=== PATIENT | male | born 1945 | race Caucasian/White ===

== ENCOUNTER 2016-08-23 14:00 | Inpatient (IN) | payer OTHER, SELFPAY ==
--- NOTE | ~2016-08-23 | DS ---
Discharge Summary [facility] [address] [place]. [address] NAME: MERLIN JIMÉNEZ : 43 STATUS : DIS IN PAT#: [id number] AGE: 71 ADM/REG DATE : 08/23/16 MR#: [id number] REPORT SERV DATE: 08/27/16 DICTATED BY: MARCUS FIGUEROA DATE: 08/26/16 REPORT STATUS : Draft TRANSCRIBED BY: CARLY DATE: 08/26/16 ADMISSION DATE: 08/23/2016 DISCHARGE DATE: 08/26/2016 CONSULTATIONS: Ophthalmology, Dr. Kirill Thrasher. PROCEDURES: None. DISCHARGE DIAGNOSES: 1. Left eye herpes zoster ophthalmicus. 2. Acute kidney injury on chronic kidney disease. 3. Diabetes mellitus type 2. 4. Hypertension. 5. Dyslipidemia. 6. Obesity. 7. History of supraventricular tachycardia status post automatic implantable cardioverter- defibrillator placement. 8. History of coronary artery disease status post percutaneous coronary intervention placement. 9. Pseudohyponatremia. DISCHARGE CONDITION: Stable. HISTORY OF PRESENT ILLNESS: In brief, this is a 71-year-old male with medical history significant for coronary artery disease status post PCI in 2010, diabetes mellitus with a hemoglobin A1c of 14.2, chronic kidney disease, history of SVT status post AICD placement, who presented to the hospital with complaints of left-sided facial pain and rash of a week duration. The patient reported that he developed sudden worsening left-sided facial pain. Two days later, after the onset of a sharp pain developed a vesicular rash that became across that, and he noticed progressive worsening facial swelling of left eye swelling and decided to come to the hospital for further evaluation. In the ER, vital signs: Blood pressure was 129/57, pulse rate was 83 beats per minute, temperature was 97.6. Physical exam was noted for a vesicular/crusted rash extending from the forehead, left temporal region extending to the left eyebrow and left lower eyelid. There was associated hyperemia and yellowish discharge. Vision in both eyes were intact. LABORATORY DATA: Significant for sodium of 129, glucose of 386, creatinine of 4.11. Hematology: WBC was 9.4, hemoglobin was 12.8, and platelets were 108. ASSESSMENT: Left eye herpes zoster ophthalmicus, acute kidney injury on chronic kidney disease as well as diabetes type 2 with hyperglycemia was made in the ER, and the patient was admitted to the Hospitalist Service. HOSPITAL COURSE: 1. Left eye herpes zoster ophthalmicus. Based on the patient's clinical presentation of Discharge Summary [address] [place]. [address] NAME: MERLIN JIMÉNEZ : 43 STATUS : DIS IN PAT#: [id number] AGE: 71 ADM/REG DATE : 08/23/16 MR#: [id number] REPORT SERV DATE: 08/27/16 DICTATED BY: MARCUS FIGUEROA DATE: 08/26/16 REPORT STATUS : Draft TRANSCRIBED BY: MODL DATE: 08/26/16 crusted vesicular lesion in the V1 trigeminal distribution affecting the left eye, an assessment and a diagnosis of herpes zoster ophthalmicus was made on presentation. Ophthalmology was consulted. We recommended to continue oral acyclovir as well as erythromycin ointment. Twenty-four hours after admission the patient developed significant left upper and lower eyelid edema. A CT scan of the face was done that shows upper and left lower eyelid edema without evidence of cellulitis. The patient was continued on oral acyclovir and erythromycin with significant improvement. Dr. Thrasher, Ophthalmology, was also consulted, who came and did an eye examination. Based on the Ophthalmology eye exam, vision was intact, but noted was some diabetes retinopathy. The patient was advised to continue oral acyclovir and erythromycin ointment, and follow up with Ophthalmology within one week of discharge. 2. Acute kidney injury on chronic kidney disease, stage 3. The patient's creatinine on presentation was 4.1, last known creatinine baseline was 1.3. The patient was started on IV fluid resuscitation. The patient's creatinine trended down from 4.1 to 0.9 at the time of discharge. The renal ultrasound that shows a 0.2 cm stone in the mid collecting system of the left kidney without any evidence of obstruction. The patient was advised to continue liberal fluid intake and to follow up with Nephrology as an outpatient. 3. Diabetes mellitus. The patient had an HbA1c that shows HGB A1c of 14.2, the patient was started on subcu insulin. The patient's blood sugar trended down from the 400 to 200. At the time of discharge, the patient's blood sugar was in the 100s. The patient had diabetes education prior to discharge. Based on financial reason it was decided that the patient should go home on Novolin 70/30, 30 units in the a.m. and 30 units at p.m. The patient reports that he will be able to pay the co-payment for Novolin 70/30 as opposed to going home on Lantus insulin as well as NovoLog. This decision was made in agreement with the patient, diabetes educators, and myself. The patient was advised to follow up with primary care physician. Also home health was set up for the patient to help the patient monitor blood sugar at home. 4. Pseudohyponatremia. On presentation, the patient's serum sodium was 128, blood sugar was in the 400. Corrected sodium for glucose was 135. The patient was started on IV fluids as well as subcu insulin. The patient's glucose trended down. The patient's sodium increased back to baseline prior to discharge. DISCHARGE MEDICATIONS: 1. Novolin 70/30, 30 units in the a.m. and 30 units in the p.m. with meals. 2. Acyclovir 600 mg p.o. every 6 hours. 3. Allopurinol 300 mg p.o. daily. 4. Aspirin 81 mg p.o. daily. 5. Coreg 12.5 mg p.o. b.i.d. 6. Cranberry extract 420 mg p.o. daily. 7. Cyanocobalamin 100 mg p.o. daily. 8. Benadryl 25 mg p.o. daily. 9. Doxazosin 4 mg tablet p.o. daily. 10.Erythromycin ointment to apply every 4 hours. 11.Folic acid. 12.Lasix 40 mg p.o. b.i.d. 13.Hydrocodone 7.5/3.25 p.o. every 6 hours p.r.n. Discharge Summary [address] [address] NAME: MERLIN JIMÉNEZ : 43 STATUS : DIS IN PAT#: [id number] AGE: 71 ADM/REG DATE : 08/23/16 MR#: [id number] REPORT SERV DATE: 08/27/16 DICTATED BY: MARCUS FIGUEROA DATE: 08/26/16 REPORT STATUS : Draft TRANSCRIBED BY: CARLY DATE: 08/26/16 14.Imdur 30 mg p.o. daily. 15.Lisinopril 25 mg p.o. daily. 16.Simvastatin [address] daily. IM[address]IN. CT brain without contrast. Impression: Stable atrophy. No acute pathology is seen. No evidence of an intracranial bleed. 2. CT of the face without contrast. Impression: Nonspecific periorbital edema consistent with the cellulitis or trauma. No intracranial extension of the process is identified. 3. Renal ultrasound. Impression: Kidneys are not obstructed. There was a stone in the left kidney not causing obstruction. The aorta and vena cava are normal. Urinary bladder normal. DISCHARGE DISPOSITION: The patient to be discharged home. Home health has been ordered. FOLLOWUP PLANS: Follow up with primary care physician within one to two weeks of discharge. Follow up with Ophthalmology within one week of discharge. DISCHARGE ACTIVITY: As tolerated. DISCHARGE DIET: 1800 calorie diet. A total of 40 minutes were used to prepare this patient's discharge, reconcile medication, and advised the patient on discharge plans and followup. IOO/MODL Marcus Figueroa MD / [id number] CC: Marcus Figueroa MD
--- NOTE | ~2016-08-23 | HP ---
History And Physical [facility] [address] [place]. [address] NAME: MERLIN JIMÉNEZ : 43 STATUS : ADM IN [facility]#: [id number] AGE: 71 ADM/REG DATE : 08/23/16 MR#: [id number] REPORT SERV DATE: 08/23/16 DICTATED BY: MARCUS FIGUEROA DATE: 08/23/16 REPORT STATUS : Draft TRANSCRIBED BY: CARLY DATE: 08/23/16 DATE OF ADMISSION: 08/23/2016 CHIEF COMPLAINT: Right facial pain and rash. HISTORY OF PRESENT ILLNESS: This is a 71-year-old male with medical history significant for coronary artery disease status post history of PCI (2010), diabetes mellitus on insulin therapy, chronic kidney disease stage III, history of SVT status post AICD placement who presented to the hospital with complaints of left-sided facial pain and rash of one week duration. The patient reported that he was in his usual state of health until about a week ago when he noticed a gradual worsening sharp pain around his right eye radiating all the way to the right forehead and right temporal region. He described the pain as 10/10 in severity. No known aggravating or relieving factors. He reported that he took Tylenol and hydrocodone for pain without any significant relief. Three days ago, he noticed a vesicular rash that gradually developed around the eye, later became crusted. He denies any history of contact with any patient with diagnosis of shingles. The patient denied taking any zoster vaccine. The patient also cannot remember if he had chicken pox during childhood. The patient denied any history of fever or skin rash in any other part of his body. He has never had any previous similar episodes. The patient reported associated poor appetite and nausea. He reports that in the last three days because of excessive nausea and generalized feeling of unwell, he has not been able to eat or drink. He has had reduced p.o. intake. He denies any vomiting, diarrhea, or abdominal pain. The patient denies taking any NSAIDs or anti-inflammatory vnjn-enl-povdlsu medication. He also denies any reduced urinary output, urgency, frequency, or flank pain. He denies any shortness of breath, chest pain, palpitation, leg swelling, orthopnea, or PND. PAST MEDICAL HISTORY: 1. History of coronary artery disease status post PCI. 2. Diabetes mellitus type 2. 3. Hypertension. 4. Dyslipidemia. 5. Chronic kidney disease stage 3. 6. History of SVT status post AICD. ALLERGIES: NO KNOWN DRUG ALLERGIES. PAST SURGICAL HISTORY: History of cholecystectomy and also history of left clavicular surgery. FAMILY HISTORY: Reports significant history of breast cancer in the mother. Father is unknown. SOCIAL HISTORY: The patient reports that he quit drinking alcohol about 13 years ago. Denies smoking cigarettes, using illicit drugs. Also denies any cocaine use. REVIEW OF SYSTEMS: History And Physical [address] [address] NAME: MERLIN JIMÉNEZ : 43 STATUS : ADM IN [facility]#: [id number] AGE: 71 ADM/REG DATE : 08/23/16 MR#: [id number] REPORT SERV DATE: 08/23/16 DICTATED BY: MARCUS FIGUEROA DATE: 08/23/16 REPORT STATUS : Draft TRANSCRIBED BY: CARLY DATE: 08/23/16 A 12-point review of systems performed; positive findings as per HPI. Other systems essentially negative. PHYSICAL EXAMINATION: VITAL SIGNS: Blood pressure 129/57, pulse rate 83 beats per minute, temperature 97.6, saturating 100% on room air. GENERAL: Not in any acute distress. Able to speak in full sentences. HEENT: Vesicular/crusted rash extending along the forehead and the upper eyebrow extending to the left temporal region. Left eye hyperemic with tiny yellowish discharge. Visual field intact. Oral mucosa moist. NECK: Supple. No cervical lymphadenopathy. CHEST: Nontender, bilaterally symmetrical. HEART: Regular rate and rhythm. S1-S2. No murmurs. LUNGS: Clear to auscultation bilaterally. No wheezing. No rhonchi. No crackles. ABDOMEN: Bowel sounds normoactive. Nontender, no palpably enlarged organomegaly. EXTREMITIES: No pedal edema. NEURO: Alert and oriented x3. Cranial nerves 2 through 12 intact. Strength 5/5 in all extremities. Reflexes normal. LABORATORY DATA: Chemistry: Sodium 129, chloride 90, potassium 4.0, bicarb 26, creatinine 4.11, BUN 82, glucose 386. Hematology: WBC 9.4, hemoglobin 12.8, hematocrit 37.4, platelets 108, ALT 42, AST 68, alkaline phosphatase 94. Lipase 146. IMPRESSION: In summary, this is a 71-year-old, male with medical history of coronary artery disease status post PCI, diabetes mellitus type 2, hypertension, chronic kidney disease stage 3 who presented to the hospital with complaints of left facial pain of one week duration and left facial rash of three day's duration who was found to have herpes zoster ophthalmicus and acute kidney injury on chronic kidney disease stage 3. Hospitalist Service contacted to admit the patient for further management. ASSESSMENT AND PLAN: 1. Herpes zoster ophthalmicus. The patient presented with crusted vesicular rash along the V1 trigeminal distribution typical for herpes zoster affecting the left eye. At the time of my evaluation, the patient's vision in the left eye and right eye are intact. No visual loss, no visual field deficit. Emergency jmsd-del-zejes consult was placed to the ophthalmology on-call case. Case was reviewed with him, and he recommended to start the patient on oral acyclovir as well as ophthalmic erythromycin to prevent superimposed bacterial infection. We will also add amitriptyline to patient's medication if the pain continues to persist. Per home health care worker, no role for topical steroids at this time as this may make patient's presentation even worse. Plan: We will continue oral acyclovir as well as topical erythromycin. 2. Acute kidney injury on chronic kidney disease. Per patient report, the patient reports that he has chronic kidney disease. He follows up with Nephrology, Dr. Benites as an outpatient. The patient's last known creatinine based on [employer] report is 1.3. Based on this presentation, this is consistent with acute kidney injury on chronic History And Physical [address] [address] NAME: MERLIN JIMÉNEZ : 43 STATUS : ADM IN PAT#: [id number] AGE: 71 ADM/REG DATE : 08/23/16 MR#: [id number] REPORT SERV DATE: 08/23/16 DICTATED BY: MARCUS FIGUEROA DATE: 08/23/16 REPORT STATUS : Draft TRANSCRIBED BY: MODL DATE: 08/23/16 kidney disease. Definitive etiology is unclear but maybe related to reduced p.o. intake as well as possible progression of chronic kidney disease secondary to diabetes nephropathy. I will place a Gaines catheter to rule out obstructive uropathy. I will start the patient on IV fluids, rehydration at this time. I will also obtain urine chemistry, even eosinophils, and bilateral retroperitoneal renal ultrasound to further elucidate the patient's etiology of acute kidney injury on chronic kidney disease. 3. Hypoosmolar hyponatremia which is due to significant osmolality, significant elevated blood sugar of 386. The patient's true serum sodium corrected for glucose is 134. This is in keeping with pseudohyponatremia. 4. Diabetes mellitus with hyperglycemia on long-term insulin use. HBA1c unknown at this time. We will recommend the patient on subcu insulin and continue the patient on normal saline for fluid hydration. No evidence for DKA as patient's anion gap is normal, and bicarb is also within normal range. 5. Hypertension. I will hold the patient's lisinopril as this may be contributing to the patient's acute kidney injury. I will also hold the patient's Lasix at this time and continue the patient on home dose antihypertensives. 6. Coronary artery disease status post PCI. No evidence of chest pain at this time. The EKG shows no evidence of ST-segment changes. We will continue patient's beta elbert, aspirin, and continue to monitor. 7. Deep vein thrombosis prophylaxis. Heparin subcu. 8. Code status. Full code. The patient will be admitted to the cardiac telemetry service under the care of Dr. Marcus Figueroa. IOO/MODL Marcus Figueroa MD / [id number] CC: Marcus Figueroa MD
--- NOTE | ~2016-08-23 | CN ---
Consultation Report [facility] [address] [place]. [address] NAME: MERLIN JIMÉNEZ : 43 STATUS : DIS IN PAT#: [id number] AGE: 71 ADM/REG DATE : 08/23/16 MR#: [id number] REPORT SERV DATE: 08/28/16 DICTATED BY: KIRILL MENA JR. DATE: 08/28/16 REPORT STATUS : Draft TRANSCRIBED BY: MODL DATE: 08/28/16 OPHTHALMOLOGY CONSULT NOTE DATE OF CONSULTATION: 08/26/2016 TIME OF CONSULT: 08:15 a.m. HISTORY OF PRESENT ILLNESS: The patient is a 71-year-old white male with a 4-day history of left scalp and eye swelling, admitted for shingles. The patient reports vision in the left eye was blurry initially, but now back to normal. PAST MEDICAL HISTORY: Type 2 diabetes, hypertension, history of bypass and stents, defibrillator, and pacemaker, and a history of kidney disease due to diabetes. PAST EYE HISTORY: Negative. FAMILY MEDICAL HISTORY: Negative. FAMILY OCULAR HISTORY: Negative. MEDICINES: See med sheet. ALLERGIES: NO KNOWN DRUG ALLERGIES. SOCIAL HISTORY: Negative for alcohol and tobacco. REVIEW OF SYSTEMS: Elevated blood sugar this admission with significantly elevated hemoglobin A1c. Blood sugars in the 300-400 range. PHYSICAL EXAMINATION: GENERAL: Well developed obese white male, in no acute distress. Alert x3. HEENT: Vision near without correction 20/100 in the right eye, 20/400 in the left. External examination is normal. On the right, there is edema of the left upper lids, no lesions. There is scaled eschar lesions on the left scalp, no bullous lesions noted. Motility is esotropic and full. Pupils 4 mm to 3 mm constricting bilaterally. There is no afferent pupillary defect noted. Confrontation visual saba are full to finger count in both eyes. Anterior segment examination reveals lids and lashes as external. Conjunctiva and sclera clear on the right, 1+ injection on the left. Cornea is clear in both eyes. Anterior chamber deep both eyes. Iris flat both eyes. Lens 3+ nuclear sclerotic cataract in both eyes. Retina dilated with Mydriacyl 1% reveals this to be sharp in both eyes. Cup- to-disk 0.3 in both eyes. Vessels normal in both eyes. Macular, there appears to background diabetic changes in both eyes. No obvious diabetic macular edema noted though. Consultation Report [facility] [id number] [place]. [address] NAME: MERLIN JIMÉNEZ : 43 STATUS : DIS IN PAT#: [id number] AGE: 71 ADM/REG DATE : 08/23/16 MR#: [id number] REPORT SERV DATE: 08/28/16 DICTATED BY: KIRILL MENA JR. DATE: 08/28/16 REPORT STATUS : Draft TRANSCRIBED BY: CARLY DATE: 08/28/16 ASSESSMENT AND PLAN: 1. Herpes zoster, left, continue erythromycin every four hours. 2. Type 2 diabetes, background retinopathy, no diabetic macular edema noted today. Follow up as an outpatient. Discussed with the patient. We will sign off. PB/SADIEL Kirill Mena M.D. / [id number] CC: Marcus Briseno MD
[2016-08-23 12:39] LABS: ER CBC TAT 0 Hrs 09 Mins; HEMOGLOBIN 12.8 g/dL (13.6-17.8); WHITE BLOOD CELLS 9.4 10/3/uL (4.5-10.5)
[2016-08-23 12:40] LABS: BASOPHILS 0.3 %; BASOPHILS ABSOLUTE 0.03 10/3/uL (0.0-0.16); EOSINOPHILS 0.6 %; EOSINOPHILS ABSOLUTE 0.06 10/3/uL (0.0-0.53); HEMATOCRIT 37.4 % (40.0-51.0); IMMATURE GRANULOCYTES 0.4 %; IMMATURE GRANULOCYTES ABSOLUTE 0.04 10/3/uL (0.0-0.11); LYMPHOCYTES ABSOLUTE 1.78 10/3/uL (0.67-4.30); MANUAL DIFF NO %; MEAN CORPUS HGB CONC 34.2 g/dL (32.0-36.0); MEAN CORPUSCULAR HEMOGLOB 32.8 pg (26.0-34.0); MEAN CORPUSCULAR VOLUME 95.9 fL (80-100); MEAN PLATELET VOLUME 9.3 fL (9.2-13.0); MONOCYTES 11.1 %; MONOCYTES ABSOLUTE 1.04 10/3/uL (0.21-1.20); NEUTROPHILS 68.6 %; NEUTROPHILS ABSOLUTE 6.43 10/3/uL (2.02-8.40); PLATELET COUNT 108 10/3/uL (150-400); RBC DISTRIBUTION WIDTH 13.4 % (12.0-16.0)
[2016-08-23 12:45] LABS: ASCORBIC ACID (UR NOT ORDER) NEG (NEG); BILIRUBIN, URINE NEGATIVE (NEG); ER URINALYSIS TAT 0 Hrs 09 Mins; KETONE, URINE NEGATIVE (NEG); LEUKOCYTE ESTERASE(NOT OR TRACE (NEG); NITRITE (URINE) NEG (NEG); WBC (NOT ORDERED) (RFLEX) 7 (0-5)
[2016-08-23 12:46] LABS: INTERNATIONAL NORMAL RATI 1.1 UNITS (-); PROTIME (NOT ORD) 13.9 SEC (12.0-14.5)
[2016-08-23 12:47] LABS: PARTIAL THROMBO TIME 30.9 SEC (22.5-37.2)
[2016-08-23 12:56] LABS: LACTATE 1.5 MMOL/L (0.3-2.4)
[2016-08-23 13:02] LABS: A/G RATIO 0.9 (0.7-1.9); ALBUMIN 3.5 G/DL (3.5-5.0); ALKALINE PHOSPHATASE 94 U/L (45-117); CALCIUM, SERUM 8.4 MG/DL (8.5-10.4); CO2 (CARBON DIOXIDE) 26 MMOL/L (24-34); GLOBULIN 3.9 G/DL (2.5-4.1); SGOT(AST) 68 U/L (5-40); SGPT(ALT) 42 U/L (5-65); TOTAL BILIRUBIN 0.8 MG/DL (0-1.2); TOTAL PROTEIN 7.4 G/DL (6.0-8.5)
[2016-08-23 13:04] LABS: BUN (BLOOD UREA NITROGEN) 82 MG/DL (6-23); CHLORIDE, SERUM 90 MMOL/L (96-112); CREATININE 4.17 MG/DL (0.70-1.30); GFR AFRICAN AMERICAN 15 ML/MIN (>=60); GFR NON AFRICAN AMERICAN 13 ML/MIN (>=60); SODIUM, SERUM 129 MMOL/L (135-148)
[2016-08-23 13:05] LABS: GLUCOSE, SERUM 386 MG/DL (60-99)
[~2016-08-23 14:00] MED LIST: ASAB PO; CARDU4 PO; CINNAMON PO; COREG6 PO; FOLIC PO; HUMULIN R1 ML SC; IMDUR30 PO; LORTAB 5 PO; NITROQUICK0.4 MG SL; NORV5 PO; NOVOLOGMIX SC; SYMBICORT 160/41 INH INH; VITAMIN B-225 MG PO; ZOCOR20 PO
[2016-08-23] MEDS ORDERED: CYANO1000T PO (14:09)
[2016-08-23] MEDS ORDERED: FOLIC ACID400 MC1 PO (14:09)
[2016-08-23] MEDS ORDERED: HALF81 PO (14:11)
[2016-08-23] MEDS ORDERED: Z300 PO (14:11)
[2016-08-23] MEDS ORDERED: CRANBERRY300 MG PO (14:11)
[2016-08-23] MEDS ORDERED: INSNOVR SC (14:11)
[2016-08-23] MEDS ORDERED: NORCO1 TA2 PO (14:12)
[2016-08-23] MEDS ORDERED: COREG12 PO (14:12)
[2016-08-23] MEDS ORDERED: BEN25 PO (14:12)
[2016-08-23] MEDS ORDERED: L40 PO (14:12)
[2016-08-23] MEDS ORDERED: ZOCOR40 PO (14:13)
[2016-08-23] MEDS ORDERED: IMDUR30 PO (14:13)
[2016-08-23] MEDS ORDERED: CARDU4 PO (14:13)
[2016-08-23] MEDS ORDERED: CIP5 PO (14:14)
[2016-08-23] MEDS ORDERED: ZESTRIL2.5 MG PO (14:14)
[2016-08-23] MEDS ORDERED: OCEAN NAS (14:14)
[2016-08-23 18:22] LABS: BASOPHILS 0.6 %; BASOPHILS ABSOLUTE 0.05 10/3/uL (0.0-0.16); EOSINOPHILS 0.3 %; EOSINOPHILS ABSOLUTE 0.03 10/3/uL (0.0-0.53); IMMATURE GRANULOCYTES 0.7 %; IMMATURE GRANULOCYTES ABSOLUTE 0.06 10/3/uL (0.0-0.11); LYMPHOCYTES ABSOLUTE 1.31 10/3/uL (0.67-4.30); MEAN CORPUS HGB CONC 33.3 g/dL (32.0-36.0); MEAN CORPUSCULAR HEMOGLOB 32.4 pg (26.0-34.0); MEAN CORPUSCULAR VOLUME 97.3 fL (80-100); MEAN PLATELET VOLUME 9.2 fL (9.2-13.0); MONOCYTES 13.6 %; MONOCYTES ABSOLUTE 1.19 10/3/uL (0.21-1.20); NEUTROPHILS 69.8 %; NEUTROPHILS ABSOLUTE 6.08 10/3/uL (2.02-8.40); PLATELET COUNT 97 10/3/uL (150-400); RBC DISTRIBUTION WIDTH 13.3 % (12.0-16.0); WHITE BLOOD CELLS 8.7 10/3/uL (4.5-10.5)
[2016-08-23 18:24] LABS: MANUAL DIFF NO %
[2016-08-23 18:35] LABS: ALLENS TEST Pos; CARBOXYHEMOGLOBIN 1.1 % (0-3); HCO3 (ACTUAL BICARBONATE) 23.3 MEQ/L (23-27); HEMOBLOGIN CONTENT 12.6 G/DL (14-18); INSTRUMENT SERIAL # 8083; METHEMOGLOBIN 0.3 % (0-3); O2 CONTENT 16.1 VOL% (18-24); OPERATOR ID 13624; PCO2 (CO2 TENSION) 38 MMHG (35-45); PO2 (O2 TENSION) 63 MMHG (79-93); SAMPLE Arterial; pH 7.41 (7.37-7.43)
[2016-08-23 18:46] LABS: FREE T4 1.07 NG/DL (0.76-1.46); PHOSPHORUS, SERUM 4.4 MG/DL (2.5-4.5)
[2016-08-23 18:54] LABS: ACETONE SMALL
[2016-08-23 19:02] LABS: BUN (BLOOD UREA NITROGEN) 77 MG/DL (6-23); CALCIUM, SERUM 7.5 MG/DL (8.5-10.4); CHLORIDE, SERUM 90 MMOL/L (96-112); CO2 (CARBON DIOXIDE) 22 MMOL/L (24-34); CREATININE 3.62 MG/DL (0.70-1.30); GFR AFRICAN AMERICAN 18 ML/MIN (>=60); GFR NON AFRICAN AMERICAN 16 ML/MIN (>=60); SODIUM, SERUM 130 MMOL/L (135-148)
[2016-08-23 19:04] LABS: GLUCOSE, SERUM 376 MG/DL (60-99)
[2016-08-24 09:18] LABS: BASOPHILS 0.8 %; BASOPHILS ABSOLUTE 0.06 10/3/uL (0.0-0.16); EOSINOPHILS 0.5 %; EOSINOPHILS ABSOLUTE 0.04 10/3/uL (0.0-0.53); HEMATOCRIT 36.2 % (40.0-51.0); HEMOGLOBIN 12.6 g/dL (13.6-17.8); IMMATURE GRANULOCYTES 0.6 %; IMMATURE GRANULOCYTES ABSOLUTE 0.05 10/3/uL (0.0-0.11); LYMPHOCYTES ABSOLUTE 1.59 10/3/uL (0.67-4.30); MEAN CORPUS HGB CONC 34.8 g/dL (32.0-36.0); MEAN CORPUSCULAR HEMOGLOB 33.3 pg (26.0-34.0); MEAN CORPUSCULAR VOLUME 95.8 fL (80-100); MEAN PLATELET VOLUME 9.4 fL (9.2-13.0); MONOCYTES 11.7 %; MONOCYTES ABSOLUTE 0.93 10/3/uL (0.21-1.20); NEUTROPHILS 66.4 %; NEUTROPHILS ABSOLUTE 5.29 10/3/uL (2.02-8.40); PLATELET COUNT 83 10/3/uL (150-400); RBC DISTRIBUTION WIDTH 13.2 % (12.0-16.0); RED CELL COUNT 3.78 10/6/uL (4.7-6.1)
[2016-08-24 09:30] LABS: MANUAL DIFF NO %
[2016-08-24 09:32] LABS: ALBUMIN 3.2 G/DL (3.5-5.0); CALCIUM, SERUM 8.3 MG/DL (8.5-10.4); CHLORIDE, SERUM 97 MMOL/L (96-112); CO2 (CARBON DIOXIDE) 26 MMOL/L (24-34); POTASSIUM, SERUM 4.1 MMOL/L (3.5-5.3); SODIUM, SERUM 134 MMOL/L (135-148)
[2016-08-24 09:36] LABS: BUN (BLOOD UREA NITROGEN) 60 MG/DL (6-23); GFR AFRICAN AMERICAN 32 ML/MIN (>=60); GFR NON AFRICAN AMERICAN 27 ML/MIN (>=60); GLUCOSE, SERUM 402 MG/DL (60-99); PHOSPHORUS, SERUM 2.6 MG/DL (2.5-4.5)
[2016-08-24 09:50] LABS: ASCORBIC ACID (UR NOT ORDER) NEG (NEG); BILIRUBIN, URINE NEGATIVE (NEG); KETONE, URINE TRACE MG/DL (NEG); LEUKOCYTE ESTERASE(NOT OR NEG (NEG); WBC (NOT ORDERED) (RFLEX) 3 (0-5)
[2016-08-25 06:18] LABS: BASOPHILS 1.4 %; BASOPHILS ABSOLUTE 0.13 10/3/uL (0.0-0.16); EOSINOPHILS 1.3 %; EOSINOPHILS ABSOLUTE 0.12 10/3/uL (0.0-0.53); HEMATOCRIT 34.9 % (40.0-51.0); HEMOGLOBIN 11.5 g/dL (13.6-17.8); IMMATURE GRANULOCYTES 0.4 %; IMMATURE GRANULOCYTES ABSOLUTE 0.04 10/3/uL (0.0-0.11); LYMPHOCYTES 39.7 %; LYMPHOCYTES ABSOLUTE 3.72 10/3/uL (0.67-4.30); MEAN CORPUSCULAR HEMOGLOB 31.3 pg (26.0-34.0); MEAN CORPUSCULAR VOLUME 95.1 fL (80-100); MEAN PLATELET VOLUME 9.4 fL (9.2-13.0); MONOCYTES ABSOLUTE 1.41 10/3/uL (0.21-1.20); NEUTROPHILS 42.2 %; NEUTROPHILS ABSOLUTE 3.95 10/3/uL (2.02-8.40); PLATELET COUNT 96 10/3/uL (150-400); RBC DISTRIBUTION WIDTH 13.7 % (12.0-16.0); RED CELL COUNT 3.67 10/6/uL (4.7-6.1); WHITE BLOOD CELLS 9.4 10/3/uL (4.5-10.5)
[2016-08-25 06:22] LABS: MANUAL DIFF NO %
[2016-08-25 06:35] LABS: CALCIUM, SERUM 8.4 MG/DL (8.5-10.4); CHLORIDE, SERUM 103 MMOL/L (96-112); CO2 (CARBON DIOXIDE) 27 MMOL/L (24-34); POTASSIUM, SERUM 3.8 MMOL/L (3.5-5.3); SODIUM, SERUM 139 MMOL/L (135-148)
[2016-08-25 06:37] LABS: BUN (BLOOD UREA NITROGEN) 46 MG/DL (6-23); CREATININE 1.47 MG/DL (0.70-1.30); GFR AFRICAN AMERICAN 54 ML/MIN (>=60); GFR NON AFRICAN AMERICAN 47 ML/MIN (>=60); GLUCOSE, SERUM 189 MG/DL (60-99); PHOSPHORUS, SERUM 1.8 MG/DL (2.5-4.5)
[2016-08-26 05:33] LABS: HEMATOCRIT 33.3 % (40.0-51.0); MEAN CORPUSCULAR VOLUME 96.8 fL (80-100); MEAN PLATELET VOLUME 8.9 fL (9.2-13.0); PLATELET COUNT 97 10/3/uL (150-400); RED CELL COUNT 3.44 10/6/uL (4.7-6.1); WHITE BLOOD CELLS 10.3 10/3/uL (4.5-10.5)
[2016-08-26 05:34] LABS: MANUAL DIFF YES %
[2016-08-26 05:46] LABS: CALCIUM, SERUM 7.8 MG/DL (8.5-10.4); CHLORIDE, SERUM 104 MMOL/L (96-112); CO2 (CARBON DIOXIDE) 26 MMOL/L (24-34); CREATININE 1.06 MG/DL (0.70-1.30); GFR AFRICAN AMERICAN 81 ML/MIN (>=60); GFR NON AFRICAN AMERICAN 70 ML/MIN (>=60); POTASSIUM, SERUM 3.9 MMOL/L (3.5-5.3); SODIUM, SERUM 140 MMOL/L (135-148)
[2016-08-26 05:48] LABS: BUN (BLOOD UREA NITROGEN) 31 MG/DL (6-23); GLUCOSE, SERUM 233 MG/DL (60-99)
[2016-08-26 06:34] LABS: BAND NEUTROPHILS 2 %; EOSINOPHILS 4 %; EOSINOPHILS ABSOLUTE (CALC) 0.41 10/3/uL (0.0-0.53); LYMPHOCYTES ABSOLUTE (CALC) 4.33 10/3/uL (0.67-4.30); MONOCYTES 10 %; MONOCYTES ABSOLUTE (CALC) 1.03 10/3/uL (0.21-1.20); NEUTROPHILS ABSOLUTE (CALC) 4.53 10/3/uL (2.02-8.40); SEGMENTED NEUTROPHIL (0) 42 %; TOTAL NUCLEATED CELLS 100
[2016-08-26 06:35] LABS: LYMPHOCYTES 42 %; PLATELET ESTIMATE SLT DEC (ADEQUATE)
[2016-08-26 06:36] LABS: ATYPICAL LYMPH OCC (0-2%) (0-5%)
[2016-08-26] MEDS ORDERED: LEVEMFLXPN SC (15:02)
[2016-08-26] MEDS ORDERED: NOVOPEN SC (15:03)
[2016-08-26] MEDS ORDERED: ZOVIRAX400 MG PO (17:38)
[2016-08-26] MEDS ORDERED: ERYTHROMYCIN O3.5 G1 OPH (17:39)
[2016-08-26] MEDS ORDERED: INSNOV7030 SC (17:47)
[2017-01-30] MEDS ORDERED: LYRICA100 MG PO (12:45)
[2017-01-30] MEDS ORDERED: SPIRO25 PO (12:45)
[2017-01-30] MEDS ORDERED: ACET500CAP PO (12:46)
== END 2016-08-26 18:41 | disposition home or self-care (01) | DRG 683 ==
LOC: ER 14:00 → 2SO 15:38
PROVIDERS: Hospitalist
DX: N17.9 Acute kidney failure, unspecified (principal); B02.30 Zoster ocular disease, unspecified; E11.22 Type 2 diabetes mellitus with diabetic chronic kidney disease; E11.65 Type 2 diabetes mellitus with hyperglycemia; E87.1 Hypo-osmolality and hyponatremia; L03.213 Periorbital cellulitis; E11.319 Type 2 diabetes mellitus with unspecified diabetic retinopathy without macular edema; I12.9 Hypertensive chronic kidney disease with stage 1 through stage 4 chronic kidney disease, or unspecified chronic kidney disease; H05.222 Edema of left orbit; I25.10 Atherosclerotic heart disease of native coronary artery without angina pectoris; E78.5 Hyperlipidemia, unspecified; N18.3 Chronic kidney disease, stage 3 (moderate); N20.0 Calculus of kidney; E66.9 Obesity, unspecified; Z79.4 Long term (current) use of insulin; Z95.5 Presence of coronary angioplasty implant and graft; Z95.810 Presence of automatic (implantable) cardiac defibrillator; Z98.890 Other specified postprocedural states; Z86.718 Personal history of other venous thrombosis and embolism; Z68.30 Body mass index [BMI] 30.0-30.9, adult
CPT/HCPCS: 36600; 70450; 70486; 71020; 76775; 80048; 80053; 80069; 81001; 82009; 82805; 82962; 83036; 83605; 83690; 83735; 84100; 84439; 84443; 85025; 85610; 85730; 87040; 89190; 93005; 97161-GP; 99285; A9270-GY

== ENCOUNTER 2017-02-22 16:08 | Inpatient (IN) | payer OTHER ==
[~2017-02-22] VITALS: Ht 170.2 cm; Wt 91.8 kg
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
--- NOTE | ~2017-02-22 | CN ---
Consultation Report [facility] [address] [place]. [address] NAME: MERLIN JIMÉNEZ : 43 STATUS : ADM IN [facility]#: [id number] AGE: 71 ADM/REG DATE : 02/22/17 MR#: [id number] REPORT SERV DATE: 02/23/17 DICTATED BY: REZA JIMENEZ DATE: 02/23/17 REPORT STATUS : Draft TRANSCRIBED BY: MODL DATE: 02/23/17 CARDIOVASCULAR CONSULTATION DATE OF CONSULTATION: 02/23/2017 HISTORY OF PRESENT ILLNESS: Mr. Jiménez is a 71-year-old man with a history of coronary disease, status post defibrillator generator change about 4 to [address] Rosa. He has a history of hypertension, hypercholesterolemia, and poorly controlled type 2 diabetes. He is admitted to [facility] with altered mental status. Several etiologies for this were entertained upon admission including stroke, Agrawal palsy, and even infection. The patient thinks it may have been related to his blood sugar as he started a new insulin regimen in the last few days. He is feeling much better this morning. No symptoms of chest pain or dyspnea. We were consulted initially because of an elevated troponin of 0.24. The patient has subsequently had 3 other troponins of 0.26, 0.29 and 0.29. Again, no chest pain symptoms as above. PAST MEDICAL HISTORY: 1. Hypertension. 2. Hypercholesterolemia. 3. Type 2 diabetes. 4. Ischemic coronary disease. 5. Status post ICD. ALLERGIES: NO KNOWN DRUG ALLERGIES. MEDICATIONS: Tylenol, allopurinol, aspirin 81 mg daily, Coreg 12.5 mg twice a day, Duricef, vitamin D, Cardura, folic acid, Lasix 40 mg twice a day, hydrocodone, insulin, isosorbide 30 mg daily, Prinivil 10 mg daily light, Lyrica, and simvastatin 40 mg daily. SOCIAL HISTORY: He does not smoke or drink alcohol. FAMILY HISTORY: There is no family history of early coronary artery disease. REVIEW OF SYSTEMS: A complete review of systems was obtained which is negative in detail except as mentioned above in the HPI. PHYSICAL EXAMINATION: BLOOD PRESSURE: 140/80. PULSE: 80. RESPIRATIONS: 14. GENERAL: Comfortable in no acute distress. HEENT: Anicteric. No xanthelasma. Lips without cyanosis. NECK: No JVD. Carotids 2+ and symmetric. No carotid bruits. LUNGS: CTA bilaterally. No wheezes or rhonchi. No accessory muscle use. Consultation Report [place] [address] [place]. [address] NAME: MERLIN JIMÉNEZ : 43 STATUS : ADM IN PAT#: [id number] AGE: 71 ADM/REG DATE : 02/22/17 MR#: [id number] REPORT SERV DATE: 02/23/17 DICTATED BY: REZA JIMENEZ DATE: 02/23/17 REPORT STATUS : Draft TRANSCRIBED BY: CARLY DATE: 02/23/17 COR: RRR. Normally placed PMI. Normal S1 and S2. No murmurs, rubs or gallops. ABD: Soft, nontender, nondistended. Normal bowel sounds. No abdominal bruits. EXT: No clubbing, cyanosis or edema 2+ and symmetric distal pulses. SKIN: Warm. Dry. No venous stasis changes. MS: No kyphosis. NEURO/PSYCH: Oriented x3. No anxiety or depression. LABORATORY STUDIES: EMS blood sugar evidently 71. White count of 10.8, hematocrit of 37, creatinine of 1.95. Troponins outlined above 0.24, 0.26, 0.29, 0.29. INR of 1.0. EKG: A 12-lead EKG shows ventricular pacing, 83 beats per minute. IMPRESSION: This is a 71-year-old man with multiple medical problems including hypertension, hypercholesterolemia, type 2 diabetes, and ischemic coronary disease. His troponin is mildly elevated but not increasing. His EKG shows ventricular pacing. He has no symptoms of chest pain. I think this is consistent with mild demand ischemia. I do not think there is any cardiovascular component to his current clinical presentation. I think the most likely etiology of his altered mental status is low blood sugar. TENNILLE/CARLY Reza Jimenez M.D. / [id number] CC: MD DEAN Rodriguez SHAYLA MONIQUE
--- NOTE | ~2017-02-22 | HP ---
History And Physical [place] [address] [place]. [address] NAME: MERLIN JIMÉNEZ : 43 STATUS : ADM IN [facility]#: [id number] AGE: 71 ADM/REG DATE : 02/22/17 MR#: [id number] REPORT SERV DATE: 02/22/17 DICTATED BY: VASILIY MCKEE DATE: 02/22/17 REPORT STATUS : Draft TRANSCRIBED BY: MODL DATE: 02/22/17 DATE OF ADMISSION: 02/22/2017 CUPOLA OPERATOR: Dr. Rosa. HISTORY OF PRESENT ILLNESS: The patient is a 71-year-old male, who presented to [facility] because according to the patient's , he had hypoglycemic episodes and his blood sugar was in 70s. By EMS, he was shaky and weak. He was unable to stand on his legs because of the weakness in the both legs which was symmetrical. The patient denied any chest pain. No shortness of breath. His speech was a little bit slurred, but it was related to confusion according to his . He was given 15 g of oral glucose. He was very stable on arrival. Because of the left facial droop, Dr. 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 The patient currently denies any chest pain. No shortness of breath. No abdominal pain. No fever. No rash. No headaches. He is just weak and a little bit shaky on his hand. He also reported that he saw a supervisor poultry processing recently because 3 weeks ago, he developed infection on his left big toe and on the second toe and for this reason, he is supposed to see Dr. Becki Plascencia outpatient. He is taking antibiotic for this infection but he is afebrile. PAST MEDICAL HISTORY: His past medical history is known for history of coronary artery disease, status post PCI, history of diabetes type 2 insulin dependent, hypertension, dyslipidemia, chronic kidney disease stage 3, history of supraventricular tachycardia, status post defibrillator change [address] Rosa; history of pseudohyponatremia in the past, and history of gout. PAST SURGICAL HISTORY: Includes cholecystectomy and left clavicular surgery. ALLERGIES: NO KNOWN DRUG ALLERGIES. FAMILY HISTORY: Significant for breast cancer in the mother and he does not know what medical problems his father had. SOCIAL HISTORY: The patient reported that he quit drinking alcohol about 13 years ago. He also quit smoking, maybe 8 to 10 years ago. He used to smoke 1 to 2 packs a day. He currently does not smoke. HOME MEDICATIONS: Include Tylenol 500 mg p.o. twice a day p.r.n.; allopurinol 300 mg daily; aspirin 81 mg daily; Coreg 12.5 p.o. b.i.d.; Duricef 500 p.o. b.i.d.; cranberry juice 4200 mg daily; vitamin B12 of 500 mg daily; Cardura 4 mg p.o. daily; folic acid 0.4 mg a day; Lasix 40 mg p.o. b.i.d.; hydrocodone with acetaminophen 7.5/325 one tablet p.o. four times daily p.r.n.; Levemir 25 units subcu twice a day; Novolin R 25 units twice a day; Imdur 30 mg p.o. daily; lisinopril 10 mg daily; Bactroban ointment topically three times daily; Lyrica 150 p.o. b.i.d.; simvastatin 40 mg daily; and [id number] nasal spray daily. History And Physical [address] [address] NAME: MERLIN JIMÉNEZ : 43 STATUS : ADM IN [facility]#: [id number] AGE: 71 ADM/REG DATE : 02/22/17 MR#: [id number] REPORT SERV DATE: 02/22/17 DICTATED BY: VASILIY MCKEE DATE: 02/22/17 REPORT STATUS : Draft TRANSCRIBED BY: CARLY DATE: 02/22/17 PHYSICAL EXAMINATION: GENERAL: Obese male, not in acute distress, resting quietly. VITAL SIGNS: Blood pressure 164/71, temperature 98.8, heart rate 82, respiratory rate 20, and oxygen saturation 94 on room air. HEENT: Head atraumatic, normocephalic. Conjunctivae clear. Pupils are equal and reactive to light and accommodation. Extraocular muscles are intact. NECK: Supple. Trachea is midline. No supraclavicular or cervical lymphadenopathy. LUNGS: Clear to auscultation bilaterally. Normal respiratory effort. CARDIOVASCULAR SYSTEM: Regular rate and rhythm. Point of maximal impulse not displaced. ABDOMEN: Soft, nontender, nondistended. Positive normoactive bowel sounds. EXTREMITIES: No clubbing or cyanosis. No edema. SKIN: Normal color and turgor. PSYCHIATRIC: Normal mood and affect. NEUROLOGICAL: Awake, alert, oriented in time, place, and person. Muscle strength is 5/5 bilaterally on the upper and lower extremities. Deep tendon reflexes are 2/4 bilaterally on upper and lower extremities. There is left-sided facial droop which is mild and chronic in nature. There is mild shakiness on his both arms and legs. LABORATORY RESULTS: His sodium is 141, potassium 4, chloride 99, carbon dioxide 34, BUN 56, creatinine 1.95. Blood sugar 179. His ALT is 28, AST 57. Troponin 0.24. The patient's creatinine on February 16 was 1.1. White count 10.9, hemoglobin 11.8, hematocrit 37.1, and platelet count 151, PT 13.4. INR is 1. His chest x-ray was done today in the emergency room and it showed cardiomegaly; official radiology report pending, personally interpreted by me. CT of the brain without contrast did not show any acute intracranial abnormality. He also had x-ray on the left toe done on 02/16/2017, which showed osteomyelitis of the left second distal phalanx with overlying cellulitis. His EKG showed atrial sensed ventricular paced rhythm with a biventricular pacemaker, rate of 83. ASSESSMENT AND PLAN: 1. This is a 71-year-old male with a past medical history of diabetes, hypertension, history of coronary artery disease, history of recent Agrawal's palsy, presented status post hypoglycemic episode with episode of shakiness, likely related to his hypoglycemia. 2. I have lower suspicion for transient ischemic attack. 3. Elevated troponin without chest pain. 4. Acute kidney injury on chronic kidney disease. 5. Recent defibrillator placement. 6. Left toe 1st and 2nd toe infection, osteomyelitis on the x-ray done on 02/16/2017. 7. Diabetes mellitus with hypoglycemia. PLAN: 1. We will admit the patient under cardiac telemetry for the shakiness and hypoglycemia. We reduced the dose of his Levemir to 10 units daily and we will monitor his blood sugars and he also takes a significant amount of regular insulin 25 units twice a day. This is also probably too much for him. He needs to be on insulin sliding scale. He will need diabetic education on Friday if he is still here on Friday. History And Physical [place] [address] [place]. [address] NAME: MERLIN JIMÉNEZ : 43 STATUS : ADM IN [facility]#: [id number] AGE: 71 ADM/REG DATE : 02/22/17 MR#: [id number] REPORT SERV DATE: 02/22/17 DICTATED BY: VASILIY MCKEE DATE: 02/22/17 REPORT STATUS : Draft TRANSCRIBED BY: CARLY DATE: 02/22/17 2. Elevated troponin without chest pain with a history of coronary artery disease. We will check his serial troponins and consult a assembler finger buffs. He also had pacemaker placement four days ago. 3. Acute kidney injury on chronic kidney disease. We will give him gentle IV fluid hydration and recheck his creatinine tomorrow. 4. For his left toe osteomyelitis 1st and 2nd, we will start the patient on Ancef and ask supervisor poultry processing to see this patient and also wound cultures are ordered before antibiotic given. 5. Also for his elevated troponin, we will order echocardiogram. 6. Possible transient ischemic attack. CT head is negative. We will repeat CT head in the morning and also do bilateral carotid ultrasound. Unfortunately we cannot do MRI on the brain as he had a pacemaker defibrillator placement. We will check with the CT of the head without contrast again tomorrow, and we will put the patient on aspirin 325 mg a day. 7. Consultants consulted for the patient's osteomyelitis, supervisor poultry processing on-call and for the patient's elevated troponin, assembler finger buffs is consulted. We will hold also the patient's Lasix and give him gentle IV fluid hydration for his acute kidney injury and hold his lisinopril. 8. For his shakiness, I will also decrease the patient's dose of Lyrica. Everything was discussed with the patient and his . MG/MODL Vasiliy Mckee M.D. / [id number] CC: KARYNA MORAN
[~2017-02-22 16:08] MED LIST changes: +ACET500CAP PO; +BEN25 PO; +CIP5 PO; +COREG12 PO; +CRANBERRY300 MG PO; +CYANO1000T PO; +ERYTHROMYCIN O3.5 G1 OPH; +FOLIC ACID400 MC1 PO; +HALF81 PO; +INSNOV7030 SC; +INSNOVR SC; +L40 PO; +LEVEMFLXPN SC; +LYRICA100 MG PO; +NORCO1 TA2 PO; +NOVOPEN SC; +OCEAN NAS; +SPIRO25 PO; +Z300 PO; +ZESTRIL2.5 MG PO; +ZOCOR40 PO; +ZOVIRAX400 MG PO
[2017-02-22] MEDS ORDERED: ZOCOR40 PO (16:59)
[2017-02-22] MEDS ORDERED: IMDUR30 PO (16:59)
[2017-02-22] MEDS ORDERED: HALF81 PO (16:59)
[2017-02-22] MEDS ORDERED: NORCO1 TA2 PO (17:00)
[2017-02-22] MEDS ORDERED: Z300 PO (17:00)
[2017-02-22] MEDS ORDERED: CARDU4 PO (17:00)
[2017-02-22] MEDS ORDERED: ACET500CAP PO (17:03)
[2017-02-22] MEDS ORDERED: OTC NASAL SPRAY NAS (17:03)
[2017-02-22] MEDS ORDERED: COREG12 PO (17:03)
[2017-02-22] MEDS ORDERED: LYRICA150 MG PO (17:03)
[2017-02-22] MEDS ORDERED: PRIN10 PO (17:04)
[2017-02-22] MEDS ORDERED: BACTROINT TOP (17:04)
[2017-02-22] MEDS ORDERED: DURICEF PO (17:05)
[2017-02-22] MEDS ORDERED: FOLIC ACID400 MC1 PO (17:05)
[2017-02-22] MEDS ORDERED: B12250T PO (17:05)
[2017-02-22] MEDS ORDERED: CRANBERRY400 MG PO (17:06)
[2017-02-22] MEDS ORDERED: L40 PO (17:07)
[2017-02-22 17:35] LABS: BASOPHILS 0.3 %; BASOPHILS ABSOLUTE 0.03 10/3/uL (0.0-0.16); EOSINOPHILS 2.7 %; EOSINOPHILS ABSOLUTE 0.29 10/3/uL (0.0-0.53); ER CBC TAT 0 Hrs 05 Mins; HEMATOCRIT 37.1 % (40.0-51.0); HEMOGLOBIN 11.8 g/dL (13.6-17.8); IMMATURE GRANULOCYTES 0.4 %; IMMATURE GRANULOCYTES ABSOLUTE 0.04 10/3/uL (0.0-0.11); LYMPHOCYTES 17.2 %; LYMPHOCYTES ABSOLUTE 1.88 10/3/uL (0.67-4.30); MEAN CORPUS HGB CONC 31.8 g/dL (32.0-36.0); MEAN CORPUSCULAR VOLUME 94.4 fL (80-100); MEAN PLATELET VOLUME 9.4 fL (9.2-13.0); MONOCYTES 8.6 %; MONOCYTES ABSOLUTE 0.94 10/3/uL (0.21-1.20); NEUTROPHILS 70.8 %; NEUTROPHILS ABSOLUTE 7.73 10/3/uL (2.02-8.40); PLATELET COUNT 151 10/3/uL (150-400); RBC DISTRIBUTION WIDTH 15.3 % (12.0-16.0); RED CELL COUNT 3.93 10/6/uL (4.7-6.1); WHITE BLOOD CELLS 10.9 10/3/uL (4.5-10.5)
[2017-02-22 17:36] LABS: MANUAL DIFF NO %
[2017-02-22 17:42] LABS: PARTIAL THROMBO TIME 30.1 SEC (22.5-37.2); PROTIME (NOT ORD) 13.4 SEC (12.0-14.5)
[2017-02-22 17:54] LABS: A/G RATIO 0.8 (0.7-1.9); ALBUMIN 3.2 G/DL (3.5-5.0); CALCIUM, SERUM 8.1 MG/DL (8.5-10.4); CHLORIDE, SERUM 99 MMOL/L (96-112); CO2 (CARBON DIOXIDE) 34 MMOL/L (24-34); SGOT(AST) 57 U/L (5-40); SGPT(ALT) 28 U/L (5-65); SODIUM, SERUM 141 MMOL/L (135-148); TOTAL BILIRUBIN 0.9 MG/DL (0-1.2); TOTAL PROTEIN 7.2 G/DL (6.0-8.5)
[2017-02-22 17:56] LABS: ALKALINE PHOSPHATASE 150 U/L (45-117); BUN (BLOOD UREA NITROGEN) 56 MG/DL (6-23); CREATININE 1.95 MG/DL (0.70-1.30); GFR AFRICAN AMERICAN 39 ML/MIN (>=60); GFR NON AFRICAN AMERICAN 33 ML/MIN (>=60); GLUCOSE, SERUM 179 MG/DL (60-99)
[2017-02-22 17:57] LABS: TROPONIN I 0.24 NG/ML (<0.05)
[2017-02-22] MEDS ORDERED: LEVEMFLXPN SC (19:27)
[2017-02-22] MEDS ORDERED: INSNOVR SC (19:27)
[2017-02-22 20:58] LABS: TROPONIN I 0.26 NG/ML (<0.05)
[2017-02-22 21:09] LABS: PROCALCITONIN 0.14 ng/mL (<0.5)
[2017-02-23 01:12] LABS: PROCALCITONIN 0.11 ng/mL (<0.5)
[2017-02-23 01:15] LABS: FOLATE 41.3 NG/ML (>5.2); TROPONIN I 0.29 NG/ML (<0.05); ULTRASENSITIVE TSH 0.802 MCIU/ML (0.358-3.740)
[2017-02-23 06:49] LABS: BASOPHILS 0.3 %; BASOPHILS ABSOLUTE 0.02 10/3/uL (0.0-0.16); EOSINOPHILS ABSOLUTE 0.28 10/3/uL (0.0-0.53); HEMATOCRIT 33.6 % (40.0-51.0); HEMOGLOBIN 10.7 g/dL (13.6-17.8); IMMATURE GRANULOCYTES 0.4 %; IMMATURE GRANULOCYTES ABSOLUTE 0.03 10/3/uL (0.0-0.11); LYMPHOCYTES 41.2 %; LYMPHOCYTES ABSOLUTE 2.91 10/3/uL (0.67-4.30); MANUAL DIFF NO %; MEAN CORPUS HGB CONC 31.8 g/dL (32.0-36.0); MEAN CORPUSCULAR HEMOGLOB 29.6 pg (26.0-34.0); MEAN CORPUSCULAR VOLUME 93.1 fL (80-100); MONOCYTES 14.6 %; MONOCYTES ABSOLUTE 1.03 10/3/uL (0.21-1.20); NEUTROPHILS 39.5 %; NEUTROPHILS ABSOLUTE 2.79 10/3/uL (2.02-8.40); PLATELET COUNT 134 10/3/uL (150-400); RBC DISTRIBUTION WIDTH 15.1 % (12.0-16.0); RED CELL COUNT 3.61 10/6/uL (4.7-6.1); WHITE BLOOD CELLS 7.1 10/3/uL (4.5-10.5)
[2017-02-23 07:06] LABS: A/G RATIO 0.8 (0.7-1.9); ALBUMIN 2.8 G/DL (3.5-5.0); BUN (BLOOD UREA NITROGEN) 53 MG/DL (6-23); CALCIUM, SERUM 7.7 MG/DL (8.5-10.4); CHLORIDE, SERUM 99 MMOL/L (96-112); CHOL/HDL RATIO(NOT ORDER) 3.1 (0-5); CHOLESTEROL 101 MG/DL (< 200); CO2 (CARBON DIOXIDE) 32 MMOL/L (24-34); CREATININE 1.49 MG/DL (0.70-1.30); GFR AFRICAN AMERICAN 54 ML/MIN (>=60); GFR NON AFRICAN AMERICAN 46 ML/MIN (>=60); GLOBULIN 3.5 G/DL (2.5-4.1); HDL CHOLESTEROL 33 MG/DL (> 39); LDL CHOLESTEROL 28 MG/DL (< 130); NON-HDL CHOLESTEROL 68 MG/DL (< 160); SGOT(AST) 42 U/L (5-40); SGPT(ALT) 24 U/L (5-65); SODIUM, SERUM 139 MMOL/L (135-148); TOTAL BILIRUBIN 0.6 MG/DL (0-1.2); TOTAL PROTEIN 6.3 G/DL (6.0-8.5); TRIGLYCERIDE 201 MG/DL (< 150)
[2017-02-23 07:07] LABS: ALKALINE PHOSPHATASE 131 U/L (45-117); GLUCOSE, SERUM 267 MG/DL (60-99); TROPONIN I 0.29 NG/ML (<0.05)
[2017-02-24 06:01] LABS: BASOPHILS 0.3 %; BASOPHILS ABSOLUTE 0.02 10/3/uL (0.0-0.16); EOSINOPHILS 4.2 %; EOSINOPHILS ABSOLUTE 0.28 10/3/uL (0.0-0.53); HEMATOCRIT 35.5 % (40.0-51.0); HEMOGLOBIN 11.3 g/dL (13.6-17.8); IMMATURE GRANULOCYTES 0.3 %; IMMATURE GRANULOCYTES ABSOLUTE 0.02 10/3/uL (0.0-0.11); LYMPHOCYTES 39.2 %; LYMPHOCYTES ABSOLUTE 2.62 10/3/uL (0.67-4.30); MEAN CORPUS HGB CONC 31.8 g/dL (32.0-36.0); MEAN CORPUSCULAR HEMOGLOB 30.1 pg (26.0-34.0); MEAN CORPUSCULAR VOLUME 94.4 fL (80-100); MEAN PLATELET VOLUME 9.8 fL (9.2-13.0); MONOCYTES 14.5 %; MONOCYTES ABSOLUTE 0.97 10/3/uL (0.21-1.20); NEUTROPHILS 41.5 %; NEUTROPHILS ABSOLUTE 2.78 10/3/uL (2.02-8.40); PLATELET COUNT 151 10/3/uL (150-400); RBC DISTRIBUTION WIDTH 14.7 % (12.0-16.0); RED CELL COUNT 3.76 10/6/uL (4.7-6.1); WHITE BLOOD CELLS 6.7 10/3/uL (4.5-10.5)
[2017-02-24 06:04] LABS: MANUAL DIFF NO %
[2017-02-24 06:14] LABS: CHLORIDE, SERUM 101 MMOL/L (96-112); CO2 (CARBON DIOXIDE) 34 MMOL/L (24-34); CREATININE 1.04 MG/DL (0.70-1.30); GFR AFRICAN AMERICAN 83 ML/MIN (>=60); GFR NON AFRICAN AMERICAN 71 ML/MIN (>=60); GLUCOSE, SERUM 251 MG/DL (60-99); POTASSIUM, SERUM 3.6 MMOL/L (3.5-5.3); SODIUM, SERUM 140 MMOL/L (135-148)
[2017-02-24 06:17] LABS: BUN (BLOOD UREA NITROGEN) 40 MG/DL (6-23); CALCIUM, SERUM 8.8 MG/DL (8.5-10.4)
== END 2017-02-24 12:48 | disposition home or self-care (01) | DRG 683 ==
LOC: ER 16:08 → 1SO 20:08 → ENPENDDIS 20:08 → 1SO 02-24 12:48
PROVIDERS: Hospitalist; Internal Medicine
DX: N17.9 Acute kidney failure, unspecified (principal); I24.8 Other forms of acute ischemic heart disease; M86.672 Other chronic osteomyelitis, left ankle and foot; E11.22 Type 2 diabetes mellitus with diabetic chronic kidney disease; E11.65 Type 2 diabetes mellitus with hyperglycemia; L03.032 Cellulitis of left toe; N18.3 Chronic kidney disease, stage 3 (moderate); I12.9 Hypertensive chronic kidney disease with stage 1 through stage 4 chronic kidney disease, or unspecified chronic kidney disease; E78.00 Pure hypercholesterolemia, unspecified; E11.69 Type 2 diabetes mellitus with other specified complication; I25.10 Atherosclerotic heart disease of native coronary artery without angina pectoris; M10.9 Gout, unspecified; E78.5 Hyperlipidemia, unspecified; E87.6 Hypokalemia; Z95.5 Presence of coronary angioplasty implant and graft; Z95.810 Presence of automatic (implantable) cardiac defibrillator; Z87.891 Personal history of nicotine dependence; Z80.3 Family history of malignant neoplasm of breast; Z79.4 Long term (current) use of insulin; Z79.82 Long term (current) use of aspirin; Z79.899 Other long term (current) drug therapy
CPT/HCPCS: 70450; 71010; 80048; 80053; 80061; 82607; 82746; 82962; 83036; 83735; 84132; 84145; 84443; 84484; 85025; 85610; 85730; 87040; 87070; 87205; 93005; 93880; 99285; A9270-GY; J0360; J0690